=== PATIENT | female | born 1960 | race Caucasian/White ===

== ENCOUNTER 2016-04-20 04:46 | Observation (INO) | payer OTHER ==
[2016-04-20] MEDS ORDERED: ONDANSETRON HCL/PF 2 MG/ML VIAL IV ONE ×2 (04:57→07:39)
[2016-04-20] MEDS ORDERED: FAMOTIDINE 10 MG/ML VIAL IV ONE ×2 (04:58→05:07)
[2016-04-20] MEDS ORDERED: NORMAL SALINE 1,000 ML IV PRN (04:58)
--- NOTE | 2016-04-20 05:05 | ERNOTE ---
Medical Problem HPI - Narrative Date of Service: 04/20/16 - General Chief Complaint: Nausea/Vomiting Time Seen by Provider: 04/20/16 04:56 Source: patient, EMS notes reviewed Exam Limitations: no limitations - Immun/Allergies/Home Medications Immunizations: IMMUNIZATION HX Immunizations Up to Date Yes History of Influenza Vaccine Yes Hx Pneumococcal Vaccination Yes Allergies/Adverse Reactions: Allergies gabapentin Adverse Reaction (Mild, Verified 11/07/15 09:48) Nausea risperidone [From Risperdal] Adverse Reaction (Mild, Verified 03/29/16 14:26) insomnia Home Medications: HOME MEDICATIONS Nabumetone 750 mg PO BID 10/23/15 [Last Taken 10/31/15] Pantoprazole Sodium [Protonix] 40 mg PO DAILY 10/23/15 [Last Taken Unknown] Lamotrigine [Lamictal] 50 mg PO QPM 03/29/16 [Last Taken Unknown] Propranolol HCl [Inderal Xl] 240 mg PO QPM 03/29/16 [Last Taken Unknown] Aspirin [[place] Aspirin] 81 mg PO DAILY 04/20/16 [Last Taken Unknown] Ciprofloxacin HCl [Cipro] 500 mg PO BID #10 tab 04/20/16 [Last Taken Unknown] Famotidine [Pepcid AC] 20 mg PO DAILY #30 tab 04/20/16 [Last Taken Unknown] Ondansetron [Zofran Odt] 4 mg PO Q6H PRN #10 tab 04/20/16 [Last Taken Unknown] metroNIDAZOLE [Flagyl] 500 mg PO Q12H #10 tab 04/20/16 [Last Taken Unknown] - History of Present History Narrative: Patient comes due to nausea and vomiting since 12 o'clock. Patient also reported upper abdominal pain. Patient was also having liquid diarrhea and patient reported she had some blood trace. No active red or dark blood noticed. Timing: intermittent Modifying Factors - (Improves): Present: other - nothing Modifying Factors - (Worsens): Present: other - nothing Review of Systems - Review of Systems Constitutional: Present: weakness, malaise. Absent: fever, chills EYE: Present: no symptoms reported ENT: Present: no symptoms reported Respiratory: Absent: shortness of breath, cough, orthopnea, wheezing Cardiology: Absent: chest pain, palpitations, syncope Gastrointestinal/Abdominal: Present: nausea, vomiting - no blood reported, diarrhea - patient think there was some trace of blood with the diarrhea, abdominal pain - upper abdomen Genitourinary: Present: no symptoms reported Musculoskeletal: Present: no symptoms reported Neurological: Present: no symptoms reported Endocrine: Present: no symptoms reported Hematologic/Lymphatic: Absent: easy bruising, easy bleeding Psych: Present: no symptoms reported All Other Systems: All systems neg except as marked - Patient's Past Medical History Patient History - Medical: GERD, Other Patient History - Cancer: No Hx of Cancer Patient History - Surgical Procedures: Cholecystectomy, Colonoscopy, , EGD, Hysterectomy, Tubal Ligation, Other - Family History Brother Family History - Medical: , Alcohol Abuse, Seizures, Other Family History - Cardiac/Respiratory: Hypertension Father Family History - Medical: , Diabetes Type 2 Family History - Cardiac/Respiratory: CHF Mother Family History - Medical: , Diabetes Type 2, Other Family History - Cardiac/Respiratory: Coronary Heart Disease - Social History Living Situations: alone Smoking Status: Current every day smoker Have you smoked in the past 12 months: Yes Alcohol Use: rarely Drug Use: none Physical Exam - Physical Exam General Appearance: Present: wd/wn, alert, no apparent distress Eye Exam: Normal inspection: bilateral, PERRL: bilateral, EOMI: bilateral Ears, Nose, Throat: Present: normal ENT inspection, hearing grossly normal. Absent: normal pharynx, dry mucous membranes Neck: Present: normal inspection, nontender. Absent: carotid bruit Respiratory: Present: no respiratory distress, normal breath sounds, no accessory muscle use, chest nontender, lungs clear Cardiovascular/Chest: Present: regular rate, rhythm, normal peripheral pulses, systolic murmur Peripheral Pulses: N=norm/S=strong/W=weak/B=bound/A=absent: Carotid (R): Normal , Carotid (L): Normal, Radial (R): Normal, Radial (L): Normal, Dorsalis-pedis (R ): Normal, Dorsalis-pedis (L): Normal Gastrointestinal/Abdominal: Present: tenderness - There is pain on the upper abdominal area, guarding. Absent: distended, rebound, McBurney sign, Obturator sign, Martinez sign, Psoas sign, mass Back Exam: Present: normal inspection, no CVA tenderness, no vertebral tenderness Extremity Exam: Present: normal inspection, non-tender, no edema, normal range of motion Neurological Exam: Present: alert, oriented, normal mood/affect, no motor/ sensory deficits Skin Exam: Present: normal color, warm/dry. Absent: diaphoresis, cyanosis, jaundice, pallor, skin rash Lymphatic Exam: Present: no adenopathy ED Progress - Date and Time Seen: Date and Time: 04/20/16 07:06 Patient has stopped vomiting and pain has improved. Patient at the moment is pending CT report. 04/20/16 07:19 Patient at the moment is not vomiting, has a non surgical abdomen, no elevation on EKG, negative Trop, and pain has improved. Patient at the moment with mild elevation of WBC that could be due reactive to vomiting. Patient is not in distress and is not septic. Patient will be discharge home with a bland diet. 04/20/16 07:39 Patient just start vomiting again. Patient will be consulted to PCP for further management. 04/20/16 08:09 Patient's case has been presented to Dr. Lizarraga. Recommendation for observation has been given. Patient has been informed or recommendations. patient at the moment is not vomiting and with no hemorrhage. - Results and Orders Patient's Lab Results:: I have reviewed the patient's lab results. Results and Orders: CBC: Leukocytosis noticed CMP: Normal K, Na, and Creat, mild elevated BUN Sherri/Lip: Negative UA: Negative Trop: Negative Normal Alk. Phos - Vital Signs Patient's Vital Signs:: I have reviewed the patient's vital signs. Vital Signs: Vital Signs 04/20/16 04:50 Temperature 35.1 C L Pulse Rate 88 Respiratory 14 Rate Blood Pressure 144/93 O2 Sat by Pulse 94 Oximetry - EKG EKG: NSR EKG read: Interp. by me EKG Comments: HR: 92, Reading: Normal, No ST Elevation, Normal QT/QTc - CT/Ultrasound CT/Ultrasound Narrative: CT Abd-Pelvis Report by Radiologist was noticed: No acute pathology reported - Progress/Reassessment Chief Complaint: Nausea/Vomiting Progress:: Improved - Transfer of Care Expected Disposition: Admit Departure - Departure Clinical Impression: Vomiting Qualifiers: Vomiting type: unspecified Vomiting Intractability: non-intractable Nausea presence: with nausea Qualified Code(s): R11.2 - Nausea with vomiting, unspecified Abdominal pain Qualifiers: Abdominal location: upper abdomen, unspecified Qualified Code(s): R10.10 - Upper abdominal pain, unspecified Diarrhea Qualifiers: Diarrhea type: unspecified type Qualified Code(s): R19.7 - Diarrhea, unspecified Disposition: [facility] Condition: Good Instructions: Nausea, Adult, Gastritis, Adult, [id number], Food Choices to Help Relieve Diarrhea, Adult, Abdominal Pain, Adult, [id number], Bloody Diarrhea Referrals: Herve Lizarraga MD [Primary Care Provider] - Prescriptions: Ciprofloxacin HCl [Cipro] 500 mg PO BID #10 tab Famotidine [Pepcid AC] 20 mg PO DAILY #30 tab Ondansetron [Zofran Odt] 4 mg PO Q6H PRN #10 tab PRN Reason: Nausea And Vomiting metroNIDAZOLE [Flagyl] 500 mg PO Q12H #10 tab
[2016-04-20] MEDS ORDERED: ONDANSETRON HCL/PF 2 MG/ML VIAL ONE ×2 (05:06→07:40)
[2016-04-20 05:21] LABS: Hematocrit 53.3 % (37.0-47.0); Hemoglobin 17.8 gm/dL (12.5-16.0); Mean Corpuscular Hemoglobin 32.7 pg (27-31); Mean Corpuscular Hgb Conc 33.4 g/dl (32-36); Mean Platelet Volume 11.2 fl (6.0-9.5); Neutrophil # 10.6 K/mm3 (1.3-6.0); Neutrophil % 85.4 % (42-75.0); Platelet Count 210 K/mm3 (150-450); Red Blood Count 5.44 M/mm3 (4.2-5.4); Red Cell Distribution Width 13.4 % (11.5-14.0); White Blood Count 12.4 K/mm3 (4.0-10.5)
[2016-04-20 05:37] LABS: ALT 29 U/L (19-67); AST 14 U/L (0-48); Albumin * 4.3 gm/dl (3.4-5.0); Alkaline Phosphatase * 110 U/L (50-170); Amylase * 64 U/L (25-115); Anion Gap 16.5 mmol/L (6.8-13.8); BUN/Creatinine Ratio 23.5 (9.0-21.6); Bilirubin, Total 0.8 mg/dL (0.0-1.1); Blood Urea Nitrogen 24 mg/dL (3-23); Ca. Corrected For Albumin 8.8 mg/dL (8.4-10.2); Calcium * 9.4 mg/dL (7.9-10.9); Carbon Dioxide 24.9 mmol/L (24-32.6); Chloride 105 mmol/L (97-106); Glucose * 173 mg/dL (70-110); Lipase 227 U/L (73-393); Potassium 4.4 mmol/L (3.4-4.6); Sodium 142 mmol/L (132-142); Troponin I Less than 0.017 ng/ml (0.00-0.10)
[2016-04-20 06:09] LABS: Urine Bilirubin 1 mg/dl (NEGATIVE); Urine Blood Negative /ul (NEGATIVE); Urine Ketone Negative (NEGATIVE); Urine Nitrite Negative (NEGATIVE); Urine Protein 15 mg/dL (NEGATIVE); Urine Specific Gravity >=1.030 SP.GR. (1.005-1.010); Urine Urobilinogen Normal (NORMAL)
[2016-04-20 06:18] LABS: Urine Appearance Clear; Urine Bacteria None Seen; Urine Color Yellow; Urine RBC None Seen /hpf (0-5); Urine WBC None Seen /hpf (0-5)
[2016-04-20 06:19] LABS: Urine Hyaline Cast 0-5 /LPF
[2016-04-20] MEDS ORDERED: LEVOFLOXACIN 500 MG TABLET PO ONE (07:33)
[2016-04-20] MEDS ORDERED: metroNIDAZOLE 250 MG TABLET PO ONE (07:33)
[2016-04-20] MEDS ORDERED: LEVOFLOXACIN 500 MG TABLET ONE (07:36)
[2016-04-20] MEDS ORDERED: metroNIDAZOLE 250 MG TABLET ONE (07:36)
[2016-04-20] MEDS ORDERED: ONDANSETRON 4 MG TAB.RAPDIS ONE (07:37)
[2016-04-20] MEDS ORDERED: NORMAL SALINE 1,000 ML IV ONE (07:39)
[2016-04-20] MEDS ORDERED: PANTOPRAZOLE SODIUM 40 MG in NORMAL SALINE 100 ML IV ONE (07:39)
[2016-04-20] MEDS ORDERED: PANTOPRAZOLE SODIUM 40 MG/100 ML PIGGYBACK IV ONE (07:49)
[2016-04-20] MEDS ORDERED: ONDANSETRON HCL/PF 2 MG/ML VIAL IV PRN (08:12)
[2016-04-20] MEDS: FAMOTIDINE 20 MG in DEXTROSE 5 % IN WATER 100 ML IV SCH ×4 (10:04→19:44)
[2016-04-20] MEDS: POTASSIUM CHLORIDE 20 MEQ in DEXTROSE 5%-NORMAL SALINE 990 ML IV SCH ×3 (10:07→22:44)
[2016-04-20] MEDS ORDERED: ACETAMINOPHEN 500 MG TABLET PO PRN (15:38)
[2016-04-20] MEDS ORDERED: lamoTRIgine 100 MG TABLET ONE (15:52)
[2016-04-20] MEDS ORDERED: PROPRANOLOL PO SCH (17:00)
[2016-04-20] MEDS ORDERED: lamoTRIgine 100 MG TABLET PO SCH (17:00)
[2016-04-20] MEDS ORDERED: LAMOTRIGINE 50 MG PO SCH (17:00)
[2016-04-20] MEDS ORDERED: PROPRANOLOL HCL 80 MG CAPSULE.SA PO SCH (17:00)
--- NOTE | 2016-04-20 19:51 | HP ---
Chief Complaint - Chief Complaint Date of Service: 04/20/16 Time of Service: 09:00 Chief Complaint: Vomiting History of Present Illness: This is a 55 y/o woman who woke up at midnight last night with vomiting. She had multiple episodes of vomiting, and so presented in the early hours of this morning to the [facility] ER. She was given parenteral medication for vomiting, but continued to have the problem, therefore was admitted to an observation bed for failure of outpatient treatment. She has also had upper abdominal pain and multiple episodes of watery brown diarrhea. There were traces of bright red blood later on with some of the diarrhea, but no melena or gross blood. Evaluation in the ER was consistent with viral gastroenteritis. - Patient's Past Medical History Patient History - Medical: Depression, GERD Patient History - Cardiac/Respiratory: Hypertension Patient History - Cancer: No Hx of Cancer Patient History - Surgical Procedures: Cholecystectomy, Colonoscopy, , EGD, Hysterectomy, Tubal Ligation - Family History Brother Family History - Medical: , Alcohol Abuse, Seizures Family History - Cardiac/Respiratory: Hypertension Father Family History - Medical: , Alcohol Abuse, Seizures Family History - Cardiac/Respiratory: CHF Mother Family History - Medical: , Diabetes Type 2 Family History - Cardiac/Respiratory: Coronary Heart Disease - Social History Living Situations: alone Smoking Status: Current every day smoker Have you smoked in the past 12 months: Yes Alcohol Use: rarely Drug Use: none Review Of Systems (GEN) - Review of Systems Generalized/Overall Review: Present: Malaise EENTM: Present: No Symptoms Reported Respiratory: Present: No Symptoms Reported Cardiac: Present: No Symptoms Reported Abdominal: Present: Nausea, Vomiting, Abdominal Pain, Diarrhea, Bright blood from rectum Genitourinary: Present: No Symptoms Reported Musculoskeletal: Present: Muscle Pain Neurological: Present: No Symptoms Reported Skin: Present: No Symptoms Reported Endocrine: Present: No Symptoms Reported Misc: All systems neg except as marked Allergies/Adverse Reactions: Allergies Allergy/AdvReac Type Severity Reaction Status Date / Time gabapentin AdvReac Mild Nausea Verified 04/20/16 08:34 risperidone [From Risperdal] AdvReac Mild insomnia Verified 04/20/16 08:34 Home Medications: HOME MEDICATIONS Nabumetone 750 mg PO BID 10/23/15 [Last Taken 10/31/15] Pantoprazole Sodium [Protonix] 40 mg PO DAILY 10/23/15 [Last Taken Unknown] Lamotrigine [Lamictal] 50 mg PO QPM 03/29/16 [Last Taken Unknown] Propranolol HCl [Inderal Xl] 240 mg PO QPM 03/29/16 [Last Taken Unknown] Aspirin [[place] Aspirin] 81 mg PO DAILY 04/20/16 [Last Taken Unknown] Famotidine [Pepcid AC] 20 mg PO DAILY #30 tab 04/20/16 [Last Taken Unknown] Ondansetron [Zofran Odt] 4 mg PO Q6H PRN #10 tab 04/20/16 [Last Taken Unknown] Topiramate [Topamax] 25 mg PO BID 04/20/16 [Last Taken Unknown] Exam - Exam Vital Signs: Vital Signs - Last Taken Selected Entries 04/20/16 04/20/16 04/20/16 04:50 07:43 07:59 Temperature 35.1 C L Temperature Tympanic Source Pulse Rate 88 98 88 Pulse Rhythm Regular Pulse Strength Normal Respiratory 14 12 14 Rate Respiratory Normal Depth Respiratory Normal Effort Respiratory Normal Pattern Blood Pressure 144/93 128/99 117/75 Blood Pressure Supine Position O2 Sat by Pulse 94 98 94 Oximetry Oxygen Delivery Room Air Room Air Room Air Method Constitutional: Present: Alert, Oriented x3, Cooperative, Well developed, Obese ENT Exam: Present: normal ENT inspection, hearing grossly normal, TMs normal, pharyngeal erythema Eye Exam: bilateral eye: normal inspection, PERRL, EOMI Neck: Present: non-tender, normal inspection Back Exam: Present: normal inspection, no CVA tenderness, no vertebral tenderness Respiratory: Present: lungs clear, no respiratory distress Cardiovascular/Chest: Present: regular rate, rhythm, no murmur Abdomen: Present: Normal bowel sounds, soft, nondistended, no rebound tenderness , no hepatospenomegaly, no masses, obese, tender - epigastric tenderness. Extremity: Present: normal inspection, no pedal edema Skin Exam: Present: normal color, warm/dry, no cyanosis Neurologic: Present: alert, oriented x 3 Appearance: Present: appropriate appearance, appropriate insight, neat, no memory impairment Eye contact: Present: cooperative, good eye contact, normal speech Thoughts: Present: normal thought pattern Diagnostic Studies: Laboratory Results WBC 12.4 K/mm3 (4.0-10.5) H 04/20/16 05:15 RBC 5.44 M/mm3 (4.2-5.4) H 04/20/16 05:15 Hgb 17.8 gm/dL (12.5-16.0) H 04/20/16 05:15 Hct 53.3 % (37.0-47.0) H 04/20/16 05:15 MCV 98.0 fl (78-100) 04/20/16 05:15 MCH 32.7 pg (27-31) H 04/20/16 05:15 MCHC 33.4 g/dl (32-36) 04/20/16 05:15 RDW 13.4 % (11.5-14.0) 04/20/16 05:15 Plt Count 210 K/mm3 (150-450) 04/20/16 05:15 MPV 11.2 fl (6.0-9.5) H 04/20/16 05:15 Immature Gran % (Auto) 0.20 % (0.001-0.429) 04/20/16 05:15 Immature Gran # (Auto) 0.03 K/mm3 (0.000-0.0310) 04/20/16 05:15 Neutrophils % 85.4 % (42-75.0) H 04/20/16 05:15 Lymphocytes % 7.7 % (20-51) L 04/20/16 05:15 Monocytes % 5.0 % (0.0-9) 04/20/16 05:15 Eosinophils % 1.4 % (0.0-3.0) 04/20/16 05:15 Basophils % 0.3 % (0.0-1.0) 04/20/16 05:15 Nucleated RBC % 0.0 k/mm3 (0-1) 04/20/16 05:15 Neutrophils # 10.6 K/mm3 (1.3-6.0) H 04/20/16 05:15 Lymphocytes # 1.0 k/mm3 (1.5-3.5) L 04/20/16 05:15 Monocytes # 0.6 k/mm3 (0.0-1.0) 04/20/16 05:15 Eosinophils # 0.2 k/mm3 (0.0-0.7) 04/20/16 05:15 Absolute Basophils 0.0 k/mm3 (0.0-0.1) 04/20/16 05:15 Sodium 142 mmol/L (132-142) 04/20/16 05:15 Plasma Sodium 143 mmol/L (130-142) H 04/20/16 05:15 Potassium 4.4 mmol/L (3.4-4.6) 04/20/16 05:15 Chloride 105 mmol/L (97-106) 04/20/16 05:15 Carbon Dioxide 24.9 mmol/L (24-32.6) 04/20/16 05:15 Anion Gap 16.5 mmol/L (6.8-13.8) H 04/20/16 05:15 BUN 24 mg/dL (3-23) H D 04/20/16 05:15 Creatinine 1.02 mg/dL (0.4-1.4) 04/20/16 05:15 Est GFR (Non-Af Amer) 59 mL/min (60-130) L D 04/20/16 05:15 BUN/Creatinine Ratio 23.5 (9.0-21.6) H 04/20/16 05:15 Random Glucose 173 mg/dL (70-110) H 04/20/16 05:15 Calcium 9.4 mg/dL (7.9-10.9) 04/20/16 05:15 Calcium Adj for Albumin 8.8 mg/dL (8.4-10.2) 04/20/16 05:15 Total Bilirubin 0.8 mg/dL (0.0-1.1) 04/20/16 05:15 AST 14 U/L (0-48) 04/20/16 05:15 ALT 29 U/L (19-67) 04/20/16 05:15 Alkaline Phosphatase 110 U/L (50-170) 04/20/16 05:15 Troponin I Less than 0.017 ng/ml (0.00-0.10) 04/20/16 05:15 Total Protein 8.0 gm/dL (6.2-8.2) 04/20/16 05:15 Albumin 4.3 gm/dl (3.4-5.0) 04/20/16 05:15 Amylase 64 U/L (25-115) 04/20/16 05:15 Lipase 227 U/L (73-393) 04/20/16 05:15 Urine Color Yellow 04/20/16 05:55 Urine Appearance Clear 04/20/16 05:55 Urine pH 5.0 pH (5.0-7.0) 04/20/16 05:55 Ur Specific Tobias >=1.030 SP.GR. (1.005-1.010) 04/20/16 05:55 Urine Protein 15 mg/dL (NEGATIVE) H 04/20/16 05:55 Urine Glucose (UA) Negative mg/dL (NEGATIVE) 04/20/16 05:55 Urine Ketones Negative mg/dL (NEGATIVE) 04/20/16 05:55 Urine Blood Negative /ul (NEGATIVE) 04/20/16 05:55 Urine Nitrate Negative (NEGATIVE) 04/20/16 05:55 Urine Bilirubin 1 mg/dl (NEGATIVE) H 04/20/16 05:55 Urine Ictotest Negative (NEGATIVE) 04/20/16 05:55 Prot Sulfosalicylic Acd Negative mg/dL (0) 04/20/16 05:55 Urine Urobilinogen Normal EU/dl (NORMAL) 04/20/16 05:55 Ur Leukocyte Esterase Negative /ul (NEGATIVE) 04/20/16 05:55 Urine RBC None seen /hpf (0-5) 04/20/16 05:55 Urine WBC None seen /hpf (0-5) 04/20/16 05:55 Ur Epithelial Cells 0-5 /hpf (0-5) 04/20/16 05:55 Urine Bacteria None seen (NONE) 04/20/16 05:55 Hyaline Casts 0-5 /LPF (NONE) H 04/20/16 05:55 Urine Culture Comments No culture indicated 04/20/16 05:55 Assessment/Plan - Narrative Narrative: Symptomatic treatment. NPO. IV fluids. Follow labs. Estimate stay of one midnight. - Assessment/Plan (1) Viral gastroenteritis Problem: Acute (2) Failure of outpatient treatment Problem: Acute
[2016-04-20] MEDS ORDERED: NON-FORMULARY 1 DOSE DOSE (Topiramate [Topamax] 25 MG) PO SCH (21:00)
[2016-04-20] MEDS ORDERED: NICOTINE 7 MG PATC TD ONE (21:56)
[2016-04-20] MEDS ORDERED: NICOTINE 7 MG PATC TD SCH (22:00)
[2016-04-20] MEDS: TOPIRAMATE 50 MG TABLET PO SCH (22:02)
[2016-04-21] MEDS: POTASSIUM CHLORIDE 20 MEQ in DEXTROSE 5%-NORMAL SALINE 990 ML IV SCH (05:07)
[2016-04-21 05:33] LABS: Hematocrit 39.4 % (37.0-47.0); Hemoglobin 12.9 gm/dL (12.5-16.0); Mean Cell Volume 98.7 fl (78-100); Mean Corpuscular Hemoglobin 32.3 pg (27-31); Mean Corpuscular Hgb Conc 32.7 g/dl (32-36); Mean Platelet Volume 11.6 fl (6.0-9.5); Neutrophil % 63.1 % (42-75.0); Platelet Count 147 K/mm3 (150-450); Red Blood Count 3.99 M/mm3 (4.2-5.4); Red Cell Distribution Width 13.3 % (11.5-14.0); White Blood Count 6.3 K/mm3 (4.0-10.5)
[2016-04-21 05:58] LABS: Albumin * 2.7 gm/dl (3.4-5.0); Anion Gap 11.7 mmol/L (6.8-13.8); BUN/Creatinine Ratio 11.1 (9.0-21.6); Bilirubin, Total 0.3 mg/dL (0.0-1.1); Ca. Corrected For Albumin 8.5 mg/dL (8.4-10.2); Calcium * 7.8 mg/dL (7.9-10.9); Carbon Dioxide 22.3 mmol/L (24-32.6); Total Protein 5.5 gm/dL (6.2-8.2)
[2016-04-21 07:02] VITALS: BP 129/73
--- NOTE | 2016-04-21 07:40 | DS ---
(1) Viral gastroenteritis Problem: Acute (2) Failure of outpatient treatment Problem: Acute Description of Stay: Admitted with IV fluid and electrolyte rehydration. Was given IV symptomatic medication. Diarrhea has stopped. Nausea is gone. Bloodwork this morning is much better. This is a picture of resolving severe gastroenteritis. She may now return home with a clear liquid diet. Procedures Performed: none Discharge Disposition: Home self care Disposition: Home self-care Condition: Good Discharge Activity: Activity as tolerated Discharge Diet: Clear Liquids - Clear liquid diet for 24 hours. Referrals: Herve Lizarraga MD [Primary Care Provider] - Problem Oriented Discharge Instructions to Patient/Family: Viral Gastroenteritis, Adult, [id number], Clear Liquid Diet, [id number] Additional Patient Instructions (free text): Clear liquids for 72 hours. Tylenol 650 mg by mouth four times daily as needed for fever or discomfort. Rest. Change appt with me from today to one week from today. Prescriptions (Any new or edited meds): Aspirin [[place] Aspirin] 81 mg PO DAILY #1 tablet.dr Rod 750 mg PO BID #1 tablet Complete Home Medications List: Complete Home Medication List: Pantoprazole Sodium [Protonix] 40 mg PO DAILY 10/23/15 Lamotrigine [Lamictal] 50 mg PO QPM 03/29/16 Propranolol HCl [Inderal Xl] 240 mg PO QPM 03/29/16 Ondansetron [Zofran Odt] 4 mg PO Q6H PRN #10 tab 04/20/16 Aspirin [[place] Aspirin] 81 mg PO DAILY #1 tablet. 04/21/16 Thadtonwarren 750 mg PO BID #1 tablet 04/21/16 Topiramate [Topamax] 25 mg PO BID tablet 04/21/16
[2016-04-21] MEDS: FAMOTIDINE 20 MG in DEXTROSE 5 % IN WATER 100 ML IV SCH ×2 (07:54)
[2016-04-21] MEDS ORDERED: PANTOPRAZOLE SODIUM 40 MG TABLET.EC PO SCH (09:00)
[2016-04-21] MEDS: TOPIRAMATE 50 MG TABLET PO SCH (09:12)
== END 2016-04-21 09:50 | disposition home or self-care (01) ==
LOC: ER 04:46 → MS 08:10
PROVIDERS: ADMIT Allergy & Immunology; ATTEND Allergy & Immunology
DX: A08.4 Viral intestinal infection, unspecified (principal); Z78.9 Other specified health status; K21.9 Gastro-esophageal reflux disease without esophagitis; I10 Essential (primary) hypertension; Z90.710 Acquired absence of both cervix and uterus; F32.9 Major depressive disorder, single episode, unspecified; Z79.899 Other long term (current) drug therapy; Z90.49 Acquired absence of other specified parts of digestive tract; F17.200 Nicotine dependence, unspecified, uncomplicated; Z82.49 Family history of ischemic heart disease and other diseases of the circulatory system; Z81.1 Family history of alcohol abuse and dependence; Z83.3 Family history of diabetes mellitus
CPT/HCPCS: 36415; 74176; 80053; 81001; 82150; 83690; 84484; 85025; 93005; 96365; 96367; 96375; 99284; G0378